=== PATIENT | female | born 1975 | race African-American/Black ===

== ENCOUNTER 2016-08-19 15:23 | Emergency (ER) | payer MEDICAID ==
[2016-08-19 16:38] LABS: BASOPHILS 0.4 % (0-2); EOSINOPHILS 0.7 % (0-7); HEMATOCRIT 42.5 % (36.0-48.0); IMMATURE GRANULOCYTES 0.2 % (0-5); LYMPHOCYTES 35.6 % (15-50); MCH 28.9 pg (26.0-34.0); MCHC 32.9 g/dL (31.0-37.0); MCV 87.8 fL (80.0-100.0); MEAN PLATELET VOLUME 10.7 fL (7.4-10.4); MONOCYTES 8.5 % (2-11); NEUTROPHILS 54.6 % (40-80); PLATELET COUNT 206 10x3/uL (130-400); RBC 4.84 10x6/uL (4.00-5.40); RDW 13.2 % (11.5-14.5); WBC 4.6 10x3/uL (4.8-10.8)
[2016-08-19 16:57] LABS: ALBUMIN 3.3 g/dL (3.4-5.0); BILIRUBIN - TOTAL 0.48 mg/dL (0.2-1.3); CALCIUM 8.8 mg/dL (8.5-10.1); CARBON DIOXIDE 28.2 mmol/L (21.0-32.0); CREATININE - SERUM 0.9 mg/dL (0.6-1.3); POTASSIUM - SERUM 3.2 mmol/L (3.5-5.1); PROTEIN - SERUM 7.5 g/dL (6.4-8.2)
== END 2016-08-19 17:40 | disposition home or self-care (01) ==
LOC: D.ER 15:23
PROVIDERS: Emergency Medicine
DX: G40.909 Epilepsy, unspecified, not intractable, without status epilepticus (principal); Z76.0 Encounter for issue of repeat prescription; J45.909 Unspecified asthma, uncomplicated

== ENCOUNTER 2016-09-05 13:01 | Emergency (ER) | payer MEDICAID | END 2016-09-05 16:30 | disposition home or self-care (01) | LOC: D.ER 13:01 | DX: M54.16 Radiculopathy, lumbar region (principal); M54.5 Low back pain; J45.909 Unspecified asthma, uncomplicated; G40.909 Epilepsy, unspecified, not intractable, without status epilepticus ==

== ENCOUNTER 2016-09-12 11:14 | Emergency (ER) | payer MEDICAID | END 2016-09-12 15:45 | disposition home or self-care (01) | LOC: D.ER 11:14 | DX: R04.0 Epistaxis (principal); M54.5 Low back pain; J45.909 Unspecified asthma, uncomplicated; G40.909 Epilepsy, unspecified, not intractable, without status epilepticus ==

== ENCOUNTER 2016-11-09 08:23 | Emergency (ER) | payer MEDICAID | END 2016-11-09 09:30 | disposition home or self-care (01) | LOC: D.ER 08:23 | DX: M25.551 Pain in right hip (principal); J45.909 Unspecified asthma, uncomplicated; F17.200 Nicotine dependence, unspecified, uncomplicated; G40.909 Epilepsy, unspecified, not intractable, without status epilepticus ==

== ENCOUNTER 2017-05-08 11:38 | Emergency (ER) | payer MEDICAID | END 2017-05-08 13:07 | disposition home or self-care (01) | LOC: D.ER 11:38 | DX: M79.604 Pain in right leg (principal); G89.29 Other chronic pain ==

== ENCOUNTER 2017-05-25 09:01 | Emergency (ER) | payer MEDICAID | END 2017-05-25 10:50 | disposition home or self-care (01) | LOC: D.ER 09:01 | DX: H61.21 Impacted cerumen, right ear (principal); J45.909 Unspecified asthma, uncomplicated; G40.909 Epilepsy, unspecified, not intractable, without status epilepticus ==

== ENCOUNTER 2017-09-11 13:37 | Emergency (ER) | payer MEDICAID ==
[~2017-09-11] VITALS: Ht 180.3 cm; Wt 77.3 kg
[2017-09-11 13:43] VITALS: BP 135/81; Ht 180.3 cm; Wt 77.3 kg
[2017-09-11] MEDS ORDERED: TYLENOL W/CODEI1 TAB PO (16:10)
[2017-09-11] MEDS ORDERED: VOLTAREN75 MG PO (16:10)
== END 2017-09-11 16:35 | disposition home or self-care (01) ==
LOC: D.ER 13:37
DX: M25.571 Pain in right ankle and joints of right foot (principal); S99.911A Unspecified injury of right ankle, initial encounter; W06.XXXA Fall from bed, initial encounter; Y93.89 Activity, other specified; Y92.013 Bedroom of single-family (private) house as the place of occurrence of the external cause; I10 Essential (primary) hypertension

== ENCOUNTER 2017-11-15 16:24 | Emergency (ER) | payer MEDICAID ==
[~2017-11-15] VITALS: Ht 180.3 cm; Wt 76.8 kg
[~2017-11-15 16:24] MED LIST: TYLENOL W/CODEI1 TAB PO; VOLTAREN75 MG PO
[2017-11-15 16:25] VITALS: Ht 180.3 cm; Wt 76.8 kg
[2017-11-15] MEDS ORDERED: NEURONTIN 300300 MG (16:26)
[2017-11-15] MEDS ORDERED: NORCO 10-325 TA1 TAB (16:26)
[2017-11-15] MEDS ORDERED: ANTIDEPRESSANT (16:27)
[2017-11-15] MEDS ORDERED: SLEEPING PILL (16:27)
[2017-11-15] MEDS ORDERED: TORADOL10 MG PO (19:23)
[2017-11-15 19:56] VITALS: BP 145/99
== END 2017-11-15 19:56 | disposition home or self-care (01) ==
LOC: D.ER 16:24
DX: S16.1XXA Strain of muscle, fascia and tendon at neck level, initial encounter (principal); V43.62XA Car passenger injured in collision with other type car in traffic accident, initial encounter; Y93.89 Activity, other specified; Y92.410 Unspecified street and highway as the place of occurrence of the external cause; Z86.73 Personal history of transient ischemic attack (TIA), and cerebral infarction without residual deficits; G40.909 Epilepsy, unspecified, not intractable, without status epilepticus; I10 Essential (primary) hypertension; F17.200 Nicotine dependence, unspecified, uncomplicated; R51 Headache

== ENCOUNTER 2018-04-15 12:04 | Emergency (ER) | payer MEDICAID ==
[~2018-04-15] VITALS: Ht 180.3 cm; Wt 89.1 kg
[~2018-04-15 12:04] MED LIST changes: +ANTIDEPRESSANT; +NEURONTIN 300300 MG; +NORCO 10-325 TA1 TAB; +SLEEPING PILL; +TORADOL10 MG PO
[2018-04-15 12:07] VITALS: Ht 180.3 cm; Wt 89.1 kg
[2018-04-15] MEDS ORDERED: ROBAXIN500 MG PO (13:24)
[2018-04-15 13:50] VITALS: BP 129/78
== END 2018-04-15 13:50 | disposition home or self-care (01) ==
LOC: D.ER 12:04
DX: S70.01XA Contusion of right hip, initial encounter (principal); W18.31XA Fall on same level due to stepping on an object, initial encounter; Y93.89 Activity, other specified; Y92.89 Other specified places as the place of occurrence of the external cause; S83.91XA Sprain of unspecified site of right knee, initial encounter

== ENCOUNTER → 2018-04-27 12:54 | Outpatient (CLI) | payer MEDICAID ==
[2018-04-15 12:07] VITALS: BMI 27.4
[~2018-04-27 12:54] MED LIST changes: +ROBAXIN500 MG PO
== END | disposition home or self-care (01) ==
LOC: D.MRI 10:30
PROVIDERS: ATTEND Clinical Nurse Specialist Family Health
DX: M25.561 Pain in right knee (principal)

== ENCOUNTER 2018-05-03 10:33 | Emergency (ER) | payer MEDICAID ==
[~2018-05-03] VITALS: Ht 180.3 cm; Wt 89.1 kg
[2018-05-03 10:38] VITALS: BP 110/74; Ht 180.3 cm; Wt 89.1 kg
[2018-05-03] MEDS ORDERED: TALWIN NX1 TAB PO (11:59)
[2018-05-03] MEDS ORDERED: BACLOFEN20 M1 PO (11:59)
== END 2018-05-03 13:05 | disposition home or self-care (01) ==
LOC: D.ER 10:33
DX: M25.561 Pain in right knee (principal)